=== PATIENT | male | born 1980 | race Caucasian/White ===

== ENCOUNTER 2024-03-09 13:28 | Emergency (ER) | payer OTHER, SELFPAY ==
[2024-03-09 13:28] VITALS: BP 136/78; PULSE 66; RESP 17; TEMP 35.7; O2SAT 100; BMI 25.1
[2024-03-09] MEDS: Morphine 4 MG/ML Syringe IV (14:21)
[2024-03-09] MEDS: Ketorolac 15 MG/ML Vial IV (14:21)
[2024-03-09] MEDS: Ondansetron 4 MG/2 ML Vial IV (14:21)
--- NOTE | 2024-03-09 16:01 | EDS_ITS ---
HPI History of Present Illness Chief Complaint: Back Detail of Chief Complaint: Exacerbation of back pain over the past several days. Informant: patient and spouse/S.O. Onset/Context/Timing Onset: Days and - (History of chronic pain dating back 20 years) Context: Sudden Onset Injury: lifting Timing: Continuous Quality: Dull and Aching Location: Lumbar and - (Complains of pain bilateral lateral right and left thigh and anterior right and left thigh.) Current Severity: Moderate Maximum Severity: Severe Worsened by: improves with Movement, Bending and Lifting Relieved by: Nothing Associated Symptoms Associated Symptoms: Radiation to Right Leg, Radiation to Left Leg and - (Saddle paresthesia anesthesia. Denies foot drop.); Negative for Numbness, Tingling, Fever, Abdominal Pain, Dysuria, Unable to Ambulate, Unable to Transfer, Urinary Retention, Urinary Incontinence, Constipation or Fecal Incontinence Narrative Narrative: Patient is a 44-year-old male. He has history of back problems dating back 20 years due to a work-related injury. He has tear with herniation at L2-L3, L3-L4 and L5-S1. Most recent MRI was 3 to 4 years ago. He denies bowel or bladder dysfunction. Denies saddle paresthesia or anesthesia. He denies foot drop. He does complain of pain at radiates to the lateral right and left proximal thigh and right and left proximal anterior thigh. He has had no recent procedure. This started when he lifted a 60 pound bag at work. He had to go home. Prior similar symptoms: Yes Recent Illness/Hospitalization: No PFSH PFS Medical History (Updated 03/09/24 @ 18:[address] Onofre Falcon MD) Herniated lumbar intervertebral disc Home Medications ?Medication ?Instructions ?Recorded ?Last Taken ?Type naproxen 500 mg tablet 500 mg PO BID #14 tabs 03/09/24 Unknown Rx oxycodone-acetaminophen 5 mg-325 1 tab PO Q6H PRN PRN Pain 3 days 03/09/24 Unknown Rx mg tablet #12 TABLETS Allergy/AdvReac Type Severity Reaction Status Date / Time No Known Allergies Allergy Verified 03/09/24 13:30 Social History (Updated 03/09/24 @ 16:[address] Onofre Falcon MD) household members: spouse Smoking Status: Unknown if ever smoked ROS ROS ED Constitutional Constitutional ED: Denies chills, fever(s) or subjective Cardiovascular Cardiovascular: Denies chest pain or palpitations Respiratory/Chest Respiratory/Chest: Denies dyspnea or dyspnea on exertion Gastrointestinal Gastrointestinal: Denies abdominal pain, nausea or vomiting Musculoskeletal Musculoskeletal: Reports back pain; Denies arthralgias, myalgias or neck pain Integumentary Denies rash Neurologic Neurologic: Denies headache(s), paresthesias or weakness Psychiatric Psychiatric: Denies anxiety or depression Hematologic/Lymphatic Hematologic/Lymphatic: Denies easy bleeding or easy bruising EXAM Physical Exam Const Vital Signs: 03/09/24 13:28 03/09/24 17:28 Temperature 96.2 F L Temperature Source Temporal Pulse Rate 66 68 Respiratory Rate 17 16 Blood Pressure 136/78 H 127/85 H Blood Pressure Mean 97 99 Pulse Ox 100 97 Oxygen Delivery Method Room Air Room Air Positive well nourished and well developed General Appearance ED: well developed; Negative for pallor HEENT Reports moist mucous membranes HEENT Narrative: Head is atraumatic normocephalic. Ears normal. Eyes PERRL and EOMs intact bilaterally General Eye ED: Negative for pale conjunctiva or scleral icterus Neck no lymphadenopathy, supple and no JVD Resp normal respiratory effort and clear to auscultation bilaterally Cardio regular rate, regular rhythm, S1 normal heart sound, S2 normal heart sound and no murmurs GI normal to inspection, nondistended, normoactive bowel sounds, soft to palpation, non-tender, non-distended and no masses Back/Spine normal to inspection; Negative for no thoracic nor lumbar tenderness Back/Spine Narrative: Patient had pain at 15 degrees on the right and 20 degrees on the left. He complained of pain in his left buttocks when his right leg was raised and right buttocks when his left leg was raised. He did not have radicular pain. Patella and ankle reflex are 1-2+ and symmetric. EHLs intact. There is no clonus or Babinski sign. Patient able to ambulate on heels and toes. Patient able to perform 1 legged squat right and left. Sensation over L3-S1 1 is essentially symmetric. There may be slight altered sensation L5 for on the right. DP and PT pulse are palpable. General Back: Negative for CVA tenderness Cervical Spine: Negative for cervical spine tenderness Thoracic Spine / Upper Back: paraspinal muscle tenderness Lumbar Spine / Lower Back: ROM limited and straight leg raise negative bilaterally Extremity normal to inspection and no clubbing, cyanosis or edema Neuro oriented x3 and no sensory deficits noted Sensorium / Orientation: alert Deep Tendon Reflexes: Rt Patellar (L4): 1+, Lt Patellar (L4): 1+, Rt Ankle (S1): 1+ and Lt Ankle (S1): 1+ Deep Tendon Reflexes Back: Rt Patellar (L4): 1+, Lt Patellar (L4): 1+, Rt Ankle (S1): 1+ and Lt Ankle (S1): 1+ Plantar Reflex: Downgoing: bilateral Psych mental status grossly normal Skin no rashes or lesions noted and no wounds General Skin Exam: Negative for jaundice or pallor MDM MDM MDM Narrative Medical decision making narrative: Patient with history of multiple level herniated disks. His exam does not suggest pain due to an acute herniated disc. This is more consistent with muscular pain. Patient initially was treated with 50 mg of ketorolac and 4 mg of morphine. I was informed by nurse verbally that he had not improved. In light of this he was given 1 mg of Dilaudid will reassess. Treatment and Re-Evaluation Narrative: Patient had improvement after Dilaudid. Patient was discharged with prescription for NSAID and opiate analgesia. Discharge Plan Triage Chief Complaint: Back ED Provider: Onofre Falcon Dx/Rx/DC Orders Clinical Impression: Herniated lumbar intervertebral disc, Acute bilateral low back pain Prescriptions: New oxycodone-acetaminophen 5-325 mg tablet 1 tab PO Q6H PRN PRN (Reason: Pain) 3 Days Qty: 12 0RF naproxen 500 mg tablet 500 mg PO BID Qty: 14 0RF [facility] Care Provider: [facility] [facility]errals[facility] [Primary [facility] - 3-5 Days if not improving Print Language: Djib[place]ian Disposition Disposition: Home, Self Care
[2024-03-09] MEDS: HYDROmorphone 1 MG/ML Syringe IV (16:17)
[2024-03-09 17:28] VITALS: BP 127/85; PULSE 68; RESP 16; O2SAT 97
[2024-03-09 18:40] VITALS: BP 125/70; PULSE 74; RESP 18; TEMP 36; O2SAT 98
== END 2024-03-09 18:42 | disposition home or self-care (01) ==
PROVIDERS: Emergency Provider Emergency Medicine; Visit Provider Emergency Medicine
DX: M51.26 Other intervertebral disc displacement, lumbar region (principal)
CPT/HCPCS: 99283; A4216; J2405

== ENCOUNTER 2024-11-14 10:52 | Emergency (ER) | payer OTHER, SELFPAY ==
[2024-11-14 10:52] VITALS: BP 146/88; PULSE 79; RESP 16; TEMP 35.9; O2SAT 98; BMI 28.8
--- NOTE | 2024-11-14 11:16 | EX.ED.GENINJ ---
HPI History of Present Illness Chief Complaint: Head Injury Informant: patient Onset/Context/Timing Onset: Today Mechanism/Context: Blunt Injury Location: head, neck Worsened by: Nothing Relieved by: Nothing Associated Symptoms Associated Symptoms: Positive for Parasthesias; Negative for Weakness, Loss of function, Inability to ambulate, Loss of consciousness or Amnesia Narrative Narrative: Patient presents with head injury that occurred today. Patient states that he was at work and walked under a vehicle that was on a lift. Patient states he stood up and hit the underside of the vehicle. Patient denies any loss of consciousness. Patient states he had some tingling into his feet. Patient states this has improved. Patient admits to some tingling into his hands that has resolved. Patient describes his pain as aching and throbbing. Patient states it is over the occiput and vertex of the scalp. Patient also admits to some pain over his upper neck. Patient denies any weakness. [facility] Medical History (Updated 11/14/24 @ 13:[address] Issac Rubin DO) Tinnitus Lumbar radiculopathy, chronic PTSD (post-traumatic stress disorder) Herniated lumbar intervertebral disc Home Medications ?Medication ?Instructions ?Recorded ?Last Taken ?Type naproxen 500 mg tablet 500 mg PO BID #14 tabs 03/09/24 Unknown Rx oxycodone-acetaminophen 5 mg-325 1 tab PO Q6H PRN PRN Pain 3 days 03/09/24 Unknown Rx mg tablet #12 TABLETS hydrocodone-acetaminophen 5-325mg 1 tab PO Q6H PRN PRN Pain 3 days 11/14/24 Unknown Rx 5mg-325mg #10 TABLETS Allergy/AdvReac Type Severity Reaction Status Date / Time No Known Allergies Allergy Verified 11/14/24 10:54 Surgical History no surgical history no surgical history Social History household members: spouse Smoking Status: Unknown if ever smoked ROS ROS ED Constitutional Constitutional ED: Denies chills or fever(s) Eyes Eyes: Denies blurry vision or change in vision ENT ENT ED: Denies rhinorrhea or sore throat Cardiovascular Cardiovascular: Denies chest pain or palpitations Respiratory/Chest Respiratory/Chest: Denies cough or dyspnea Gastrointestinal Gastrointestinal: Denies nausea or vomiting Genitourinary Genitourinary ED: Denies dysuria or hematuria Musculoskeletal Musculoskeletal: Reports back pain and neck pain Integumentary Denies abscess or rash Neurologic Neurologic: Reports headache(s); Denies weakness Allergic/Immunologic Allergic/Immunologic ED: Denies mouth swelling or urticaria EXAM Physical Exam Const Vital Signs: 11/14/24 10:52 Temperature 96.7 F L Temperature Source Temporal Pulse Rate 79 Respiratory Rate 16 Blood Pressure 146/88 H Blood Pressure Mean 107 Pulse Ox 98 Oxygen Delivery Method Room Air Positive well nourished and well developed Constitutional Narrative: BMI is 28.8 General Appearance ED: well developed and NAD HEENT HEENT Narrative: occiput and vertex tenderness Neck Neck Narrative: Tenderness upper cervical spine and paraspinal muscles General: tenderness Resp normal respiratory effort and clear to auscultation bilaterally Cardio regular rhythm Rate: regular rate GI non-tender and non-distended Palpation: soft Extremity normal to inspection General Extremety ED: Negative for deformity or tenderness General Extremity: Negative for deformity Neuro oriented x3, CN's II-XII intact bilaterally, moves all extremities, no focal motor deficits and no sensory deficits noted Sensorium / Orientation: alert Motor Exam: strength 5/5 throughout Psych mental status grossly normal Skin no wounds MDM MDM MDM Narrative Medical decision making narrative: Differential diagnosis includes closed head injury, intracranial bleeding, cervical spine fracture, cervical strain, and contusion. CT scan of the brain will be obtained to assess for intracranial bleeding. CT scan of the cervical spine will be obtained to assess for cervical fracture and spondylolisthesis. Radiography Diagnostic Testing: Clinical Impression(s) from Imaging Studies Brain CT 11/14/24 12:05 IMPRESSION: 1. No visible acute posttraumatic intracranial findings. 2. Ethmoid and maxillary predominant paranasal sinus disease. Reading Location: [facility] C[address] 11/14/24 12:05 IMPRESSION: 1. No cervical spinal fracture or acute malalignment identified. 2. Additional description as above. Reading Location: [facility] CT scan of the cervical spine was obtained. There is no acute fracture or spondylolisthesis. There is no soft tissue swelling. This was interpreted by the radiologist and was also independently reviewed by myself. CT scan of the brain was obtained. There is no acute intracranial abnormality. This was interpreted by the radiologist and was also independently reviewed by myself. Treatment and Re-Evaluation Narrative: Patient was advised of his findings. Patient was instructed to use ice to the area. Patient was given a prescription for a short course of Osteen. Patient was instructed to follow-up with his primary care physician or Workmen's Comp. physician in 5 to 7 days. Patient was instructed return if worse in any way. Patient understood and was agreeable with the plan. All questions were answered. Discharge Plan Triage Chief Complaint: Head Injury ED Provider: Issac Rubin Dx/Rx/DC Orders Clinical Impression: Closed head injury, Acute cervical myofascial strain Instructions: ED Head Injury (Adult), ED Neck Sprain or Strain Prescriptions: New hydrocodone-acetaminophen 5-325 mg tablet 1 tab PO Q6H PRN PRN (Reason: Pain) 3 Days Qty: 10 0RF No Action oxycodone-acetaminophen 5-325 mg tablet 1 tab PO Q6H PRN PRN (Reason: Pain) 3 Days Qty: 12 0RF naproxen 500 mg tablet 500 mg PO BID Qty: 14 0RF Stand Alone Forms: Work Status Form [facility] [facility]errals: [facility] [Non[facility]Staff[facility] - 5-7 [facility] - [facility]-7 Days Print Language: Tanzanian Disposition Disposition: Home, Self Care
--- NOTE | 2024-11-14 12:05 | CT_ITS ---
PROCEDURE: SPINE CERVICAL WITHOUT CONTRAS 11/14/2024 REASON FOR EXAM: INJURY/PAIN TECHNIQUE: Cervical spine CT without contrast. Coronal and Sagittal reconstruction series were provided. One or more dose reduction techniques were used (e.g., Automated exposure control, adjustment of the mA and/or kV according to patient size, use of iterative reconstruction technique RADIATION DOSE SUMMARY: CTDlvol: 24.1 mGy DLP: 501.01 mGycm COMPARISON: None. FINDINGS: No cervical spinal fracture or acute malalignment identified. Vertebral body heights are preserved. Straightening of the normal cervical lordosis could be positional or related to pain/muscular spasm. Overall mild spondylosis. Variable spinal canal stenoses up to at least mild/moderate. No high-grade bony foraminal stenosis. Findings suboptimally delineated by CT. Prominent but not pathologically enlarged cervical nodes. CT/Spine Cervical without Contras IMPRESSION: 1. No cervical spinal fracture or acute malalignment identified. 2. Additional description as above. Reading Location: [id number]
--- NOTE | 2024-11-14 12:05 | CT_ITS ---
PROCEDURE: BRAIN/HEAD WITHOUT CONTRAST 11/14/2024 REASON FOR EXAM: INJURY/PAIN TECHNIQUE: Head CT without intravenous contrast. Coronal and Sagittal reconstruction series were provided. One or more dose reduction techniques were used (e.g., Automated exposure control, adjustment of the mA and/or kV according to patient size, use of iterative reconstruction technique. RADIATION DOSE SUMMARY: CTDlvol: 44.99 mGy DLP: 846.73 mGycm COMPARISON: None. FINDINGS: Cerebrum: Unremarkable. Cerebellum/brainstem: Unremarkable. Note slight limitation due to beam hardening artifact. Ventricles/extra-axial spaces: Unremarkable. Paranasal sinuses/mastoid air cells: Patchy opacification and mucosal thickening in the ethmoid air cells. Mild/moderate mucosal thickening along the predominantly inferior maxillary sinuses. Mastoid air cells are clear.. Scalp/calvarium: Unremarkable. Other: Unremarkable. CT/Brain/Head without Contrast IMPRESSION: 1. No visible acute posttraumatic intracranial findings. 2. Ethmoid and maxillary predominant paranasal sinus disease. Reading Location: [id number]
[2024-11-14 13:51] VITALS: BP 137/81; PULSE 62; RESP 16; TEMP 35.9; O2SAT 99
== END 2024-11-14 13:52 | disposition home or self-care (01) ==
PROVIDERS: Emergency Provider Emergency Medicine; Visit Provider Emergency Medicine
DX: S09.90XA Unspecified injury of head, initial encounter (principal); S16.1XXA Strain of muscle, fascia and tendon at neck level, initial encounter; W24.0XXA Contact with lifting devices, not elsewhere classified, initial encounter; Y93.89 Activity, other specified; Y99.0 Civilian activity done for income or pay; Y92.89 Other specified places as the place of occurrence of the external cause
CPT/HCPCS: 70450; 72125; 99282